=== PATIENT | female | born 1975 | race Caucasian/White ===

== ENCOUNTER 2018-05-15 18:27 | Emergency (ER) | payer BC ==
[~2018-05-15] VITALS: Ht 162.6 cm; Wt 74.9 kg
[~2018-05-15 18:27] MED LIST: ASPI325T4 PO; ATEN-175 PO; MULTTAB58 PO
[2018-05-15 18:31] VITALS: TEMP 36.7; Ht 162.6 cm; Wt 74.9 kg
--- NOTE | 2018-05-15 18:49 | EMERGENCY ROOM VISIT NOTE ---
History Report prepared by Tonie: Chalo Lopes Under the Supervision of: Dr. Yanique Mercado D.O. 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 The patient states she was at the fair today when she developed pins and needles in her whole chest that spreads down her arms and up into her neck. She reports she was also sweating which is odd because she does not sweat normally. The patient notes she had an episode of chest tightness Thursday that started an hour after she accidently took 200mg of her Atenolol. She states this resolved and was likely medication related. The patient reports she was baseline and Thursday. She notes she has a toddler at home and is worried about her constantly. The patient states she takes Lisinopril, Lexapro, and a baby aspirin daily. She reports she took an extra baby aspirin on the way here. The patient notes she has been eating fried food at the [facility] all week, and she is normally on a low carbohydrate diet. She attributes her recent diarrhea to her diet, and she denies being exposed to sick people. The patient denies cough, cold symptoms, fevers, chills, chest pain, chest pressure, back pain, dizziness , lightheadedness, and shortness of breath. The patient states 12 years ago, she had an episode of peripartum cardiomyopathy , LVAD, and a TIA. The patient states she was 38 weeks and started experiencing shortness of breath and vomiting. 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 The patient notes she was transferred to [facility] and in the hospital for 91 days. She states the was a still-born. The patient reports she had an LVAD for 79 days and was taken off it when her heart returned to normal size. She notes she did not require a heart transplant. The patient states she had a TIA when she being take off the LVAD it required her blood thinner to be stopped as well. She reports, because of her history, her heart now skips several beats, she has mild intermittent incontinence, right sided facial droop at times, and intermittent right leg weakness. The patient notes her last echo from [facility] two years ago, and she gets an echocardiogram every two years. She states she has not had an echocardiogram since she transferred to Dr. Samayoa. 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 A total of 10 systems reviewed and were otherwise negative. Past Medical & Surgical Medical Problems: (1) peripartum cardiomyopathy (2) TIA Family History Heart disease Social History Smoking Status: Never Smoker Alcohol Use: occasionally Marital Status: Housing Status: lives with family Current/Historical Medications Scheduled Aspirin (Aspirin Ec), 81 MG PO DAILY Atenolol (Tenormin), 100 MG PO DAILY Cholecalciferol (Vitamin D 1000 Unit), 1,000 INTER.UNIT PO DAILY Escitalopram Oxalate (Lexapro), 20 MG PO DAILY Lisinopril (Zestril), 5 MG PO DAILY Allergies Coded Allergies: Povidone Iodine (Verified Allergy, Unknown, ITCHING, RASH, 12/31/15) Pseudoephedrine (Verified Allergy, Unknown, 04/04/12) Physical Exam Vital Signs Date Time Temp Pulse Resp B/P (MAP) Pulse Ox O2 Delivery O2 Flow Rate FiO2 05/15/18 21:13 51 16 100/52 98 05/15/18 19:49 78 05/15/18 19:32 98 Room Air 05/15/18 19:29 98 Room Air 05/15/18 18:31 36.7 82 18 132/87 97 Room Air Physical Exam GENERAL: alert, well appearing, well nourished, no distress, non-toxic. Anxious. EYE EXAM: normal conjunctiva, PERRL and EOM's grossly intact OROPHARYNX: no exudate, no erythema, lips, buccal mucosa, and tongue normal and mucous membranes are moist NECK: supple, no nuchal rigidity, no adenopathy, non-tender CHEST: Well healed midline sternotomy scar. No reproducible tenderness to palpation of the chest wall. LUNGS: Clear to auscultation. Normal chest wall mechanics HEART: no murmurs, S1 normal and S2 normal ABDOMEN: abdomen soft, non-tender, normo-active bowel sounds, no masses, no rebound or guarding. BACK: Back is symmetrical on inspection and there is no deformity, no midline tenderness, no CVA tenderness. SKIN: no rashes and no bruising UPPER EXTREMITIES: upper extremities are grossly normal. LOWER EXTREMITIES: No pitting edema. NEURO EXAM: Normal sensorium, cranial nerves II-XII grossly intact, normal speech, no gross weakness of arms, no gross weakness of legs. Medical Decision & Procedures ER Provider Diagnostic Interpretation: Radiology results have been interpreted by the radiologist and reviewed by me. CHEST ONE VIEW PORTABLE CLINICAL HISTORY: Atypical chest pain COMPARISON STUDY: 09/23/2012 FINDINGS: The cardiac and mediastinal contours are normal. There is no evidence of focal pulmonary consolidation. There is no evidence of failure. No pleural effusions are visualized.[ There are postsurgical changes of a midline sternotomy. IMPRESSION: No active disease in the chest. Electronically signed by: Charlie Raymond M.D. 05/15/2018 7:24 PM Dictated Date/Time: 05/15/2018 7:24 PM Laboratory Results 05/15/18 19:19 Red Blood Count 5.16, Mean Corpuscular Volume 85.1, Mean Corpuscular Hemoglobin 29.5, Mean Corpuscular Hemoglobin Concent 34.6, Mean Platelet Volume 11.2, Neutrophils (%) (Auto) 65.0, Lymphocytes (%) (Auto) 25.9, Monocytes (%) (Auto) 7.6, Eosinophils (%) (Auto) 0.9, Basophils (%) (Auto) 0.3, Neutrophils # (Auto) 7.24, Lymphocytes # (Auto) 2.89, Monocytes # (Auto) 0.85, Eosinophils # (Auto) 0.10, Basophils # (Auto) 0.03 05/15/18 19:19 Test 05/15/18 19:19 White Blood Count 11.14 K/uL (4.8-10.8) Red Blood Count 5.16 M/uL (4.2-5.4) Hemoglobin 15.2 g/dL (12.0-16.0) Hematocrit 43.9 % (37-47) Mean Corpuscular Volume 85.1 fL (80-100) Mean Corpuscular Hemoglobin 29.5 pg (25-34) Mean Corpuscular Hemoglobin Concent 34.6 g/dl (32-36) Platelet Count 223 K/uL (130-400) Mean Platelet Volume 11.2 fL (7.4-10.4) Neutrophils (%) (Auto) 65.0 % Lymphocytes (%) (Auto) 25.9 % Monocytes (%) (Auto) 7.6 % Eosinophils (%) (Auto) 0.9 % Basophils (%) (Auto) 0.3 % Neutrophils # (Auto) 7.24 K/uL (1.4-6.5) Lymphocytes # (Auto) 2.89 K/uL (1.2-3.4) Monocytes # (Auto) 0.85 K/uL (0.11-0.59) Eosinophils # (Auto) 0.10 K/uL (0-0.5) Basophils # (Auto) 0.03 K/uL (0-0.2) RDW Standard Deviation 41.6 fL (36.4-46.3) RDW Coefficient of Variation 13.4 % (11.5-14.5) Immature Granulocyte % (Auto) 0.3 % Immature Granulocyte # (Auto) 0.03 K/uL (0.00-0.02) Prothrombin Time 9.8 SECONDS (9.0-12.0) Prothromb Time International Ratio 0.9 (0.9-1.1) Anion Gap 8.0 mmol/L (3-11) Est Creatinine Clear Calc Drug Dose 75.7 ml/min Estimated GFR () 84.5 Estimated GFR (Non- 72.9 BUN/Creatinine Ratio 15.0 (10-20) Calcium Level 8.9 mg/dl (8.5-10.1) Magnesium Level 1.8 mg/dl (1.8-2.4) Total Bilirubin 0.5 mg/dl (0.2-1) Aspartate Amino Transf (AST/SGOT) 13 U/L (15-37) Alanine Aminotransferase (ALT/SGPT) 21 U/L (12-78) Alkaline Phosphatase 91 U/L (45-117) Troponin I < 0.015 ng/ml (0-0.045) Pro-B-Type Natriuretic Peptide 779 pg/ml (0-450) Total Protein 7.8 gm/dl (6.4-8.2) Albumin 3.9 gm/dl (3.4-5.0) Globulin 3.9 gm/dl (2.5-4.0) Albumin/Globulin Ratio 1.0 (0.9-2) Thyroid Stimulating Hormone (TSH) 1.390 uIu/ml (0.300-4.500) Laboratory results per my review. Medications Administered Medications (Trade) Dose Ordered Sig/Inez Route Start Time Stop Time Status Last Admin Dose Admin Potassium Chloride (Klor-Con M10) 40 meq NOW STAT PO 05/15/18 20:42 05/15/18 20:45 DC 05/15/18 20:58 40 MEQ Magnesium Oxide (Mag-Ox Tab) 400 mg NOW STAT PO 05/15/18 20:42 05/15/18 20:45 DC 05/15/18 20:58 400 MG ECG Per My Interpretation Indication: chest pain Rate (beats per minute): 78 Rhythm: sinus rhythm Findings: PVC (frequent), no acute ischemic change, left axis deviation, other (Normal intervals.) Comparison ECG Date: 09/27/12 Change: no significant change Change: No acute change in morphology. ED Course 1835: The patient was evaluated in room B08. A complete history and physical exam was performed. 2034: I reevaluated the patient. She is feeling better now. She is now experiencing her PVCs. Patient denies any recent caffeine consumption, sleep deprivation, or change in activity. Patient states she does intermittently experience significant stress as she is the mother of a toddler. Patient also states she feels anxious at times which she thinks is likely secondary to her prior health experiences. 2038: I discussed the patient's case with Dr. Samayoa, Cardiology. He recommends giving the patient more magnesium and potassium. She should call the office on Thursday. 2041: Ordered Mag-Ox 400mg PO, Potassium Chloride 40meq PO 2055: Upon reevaluation, the patient is feeling better. I discussed the findings and the treatment plan with the patient. She verbalizes agreement and understanding. The patient was discharged home. Medical Decision Differential diagnoses includes but is not limited to acute coronary syndrome, myocardial infarction, pericarditis, pulmonary embolus, aortic dissection, pneumonia, pneumothorax, musculoskeletal, shingles, esophageal. Pt well appearing here despite complaints. Likely component of underlying anxiety which is understandable given pt's significant history and prior cardiac events. Pt's labs and imaging here reassuring. Case was discussed with Dr. Samayoa as a precaution given her significant history. Patient's pins and needles in the chest symptoms did improve here, however patient also had frequent PVCs noted on telemetry which patient also states she can feel. Dr. Samayoa like patient given additional potassium and magnesium as a precaution, and she can call the office Thursday for close outpatient follow-up next week. Discussed with patient avoidance of caffeine, adequate sleep and hydration, continued use of her routine medications, symptoms to watch and return for, she verbalized understanding was agreeable with plan. Patient hemodynamically stable here throughout, aware of all results, and in agreement with plan. Do not suspect ACS, pathologic dysrhythmia, acute CHF, acute valve rupture, tamponade, effusion, occult infectious etiology. Likely mildly abnormal proBNP is inconsequential, although I did discuss this with Dr. Samayoa as well and that is part of the reason he plans on doing an echo in the office next week. Medication Reconcilliation Current Medication List: was personally reviewed by me Blood Pressure Screening Patient's blood pressure: Elevated blood pressure Blood pressure disposition: Elevated BP felt to be situational Consults Time Called: 2033 Consulting Physician: Dr. Samayoa, Cardiology Returned Call: 2038 I discussed the patient's case with Dr. Samayoa, Cardiology. He recommends giving the patient more magnesium and potassium. She should call the office on Thursday. Impression Primary Impression: PVC (premature ventricular contraction) Additional Impression: Chest discomfort Scribe Attestation The scribe's documentation has been prepared under my direction and personally reviewed by me in its entirety. I confirm that the note above accurately reflects all work, treatment, procedures, and medical decision making performed by me. Departure Information Dispostion Home / Self-Care Referrals Ellen Washburn D.O. (PCP) Forms IMPORTANT VISIT INFORMATION Patient Instructions My [facility] Additional Instructions Please call Dr. Samayoa's office Thursday morning for an appointment. Please continue your regular medications. Please try to get adequate sleep, stay well hydrated, and avoid caffeine consumption. If you have any recurrent abnormal sensations in the chest, feel more palpitations, develop dizziness, trouble breathing, vomiting, fevers, or you have any other new or concerning symptoms, please return to the emergency room. Problem Qualifiers
--- NOTE | 2018-05-15 19:25 | DIAGNOSTIC IMAGING REPORT ---
CHEST ONE VIEW PORTABLE CLINICAL HISTORY: Atypical chest pain COMPARISON STUDY: 09/23/2012 FINDINGS: The cardiac and mediastinal contours are normal. There is no evidence of focal pulmonary consolidation. There is no evidence of failure. No pleural effusions are visualized.[ There are postsurgical changes of a midline sternotomy. IMPRESSION: No active disease in the chest. Electronically signed by: Charlie Raymond M.D. 05/15/2018 7:24 PM Dictated Date/Time: 05/15/2018 7:24 PM
[2018-05-15 19:29] VITALS: O2SAT 98
[2018-05-15 19:36] LABS: BASO % 0.3 %; BASO ABS # 0.03 K/uL (0-0.2); EOS % 0.9 %; HEMATOCRIT 43.9 % (37-47); HEMOGLOBIN 15.2 g/dL (12.0-16.0); IG# 0.03 K/uL (0.00-0.02); LYMPH % 25.9 %; LYMPH ABS # 2.89 K/uL (1.2-3.4); MEAN CELL VOLUME 85.1 fL (80-100); MEAN CORPUSCULAR HEMOGLOBIN 29.5 pg (25-34); MEAN CORPUSCULAR HGB CONC 34.6 g/dl (32-36); MEAN PLATELET VOLUME 11.2 fL (7.4-10.4); MONO % 7.6 %; MONO ABS # 0.85 K/uL (0.11-0.59); NEUT ABS # 7.24 K/uL (1.4-6.5); PLATELET COUNT 223 K/uL (130-400); RED CELL DISTRIBUTION WIDTH CV 13.4 % (11.5-14.5); RED CELL DISTRIBUTION WIDTH SD 41.6 fL (36.4-46.3); WHITE BLOOD COUNT 11.14 K/uL (4.8-10.8)
[2018-05-15 19:45] LABS: INR 0.9 (0.9-1.1)
[2018-05-15] MEDS ORDERED: ASPI81TA28 PO (20:07)
[2018-05-15] MEDS ORDERED: CHOL100027 PO (20:07)
[2018-05-15 20:19] LABS: ALBUMIN 3.9 gm/dl (3.4-5.0); ALKALINE PHOSPHATASE 91 U/L (45-117); ALT/SGPT 21 U/L (12-78); AST/SGOT 13 U/L (15-37); BLOOD UREA NITROGEN 14 mg/dl (7-18); CALCIUM 8.9 mg/dl (8.5-10.1); CARBON DIOXIDE 23 mmol/L (21-32); CREATININE 0.96 mg/dl (0.60-1.20); GLUCOSE 92 mg/dl (70-99); SODIUM 139 mmol/L (136-145); TOTAL PROTEIN 7.8 gm/dl (6.4-8.2)
[2018-05-15] MEDS ORDERED: ESCI1TAB10 PO (20:20)
[2018-05-15] MEDS ORDERED: LISI-729 PO (20:20)
[2018-05-15] MEDS ORDERED: MAGNESIUM OXIDE 400 MG TAB PO STA (20:42)
[2018-05-15] MEDS ORDERED: POTASSIUM CHLORIDE 10 MEQ TABCR PO STA (20:42)
[2018-05-15 21:13] VITALS: BP 100/52; PULSE 51; O2SAT 98
== END 2018-05-15 21:15 | disposition home or self-care (01) ==
LOC: C.EDB 18:28
DX: I49.3 Ventricular premature depolarization (principal); R07.89 Other chest pain; R19.7 Diarrhea, unspecified; Z79.82 Long term (current) use of aspirin; Z79.899 Other long term (current) drug therapy; Z88.8 Allergy status to other drugs, medicaments and biological substances; Z86.73 Personal history of transient ischemic attack (TIA), and cerebral infarction without residual deficits

== ENCOUNTER 2018-12-02 17:47 | Observation (INO) ==
--- NOTE | 2018-12-02 19:15 | XRay Report ---
SINGLE VIEW CHEST CLINICAL HISTORY: Strokelike symptoms. FINDINGS: An AP, portable, upright chest radiograph is compared to study dated 05/15/2018 and correlat ed with chest CT dated 12/28/2013. The patient is status post midline sternotomy. The cardiomediastinal silhouette is unremarkable. The lungs and pleural spaces are clear. No pneumothorax is seen. The bon y thorax is grossly intact. IMPRESSION: No active disease in the chest. Electronically signed by: Van Womack M.D. 12/02/2018 7:14 PM
--- NOTE | 2018-12-02 20:23 | CT Scan Report ---
UNENHANCED CT OF THE BRAIN; CT ANGIOGRAM OF THE BRAIN; CT ANGIOGRAM OF THE NECK CLINICAL HISTORY: Strokelike symptoms. COMPARISON STUDY: CT of the brain dated 09/23/2012. MRI of the brain dated 01/03/2016. MR angiogram of the brain dated 09/24/2012. TECHNIQUE: Unenhanced axial CT scan of the brain is performed. Subsequently, following the IV adminis tration of 115 of [address] 320, CT angiogram of the head and neck was performed from the aortic arch t o the vertex. Images are reviewed in the axial, sagittal, and coronal planes. 3-D MIPS images are cre ated and assessed. IV contrast was administered without complication. All measurements were calculate d based on NASCET criteria. A dose lowering technique was utilized adhering to the principles of ALA RA. CT DOSE: 1002.17 mGy.cm FINDINGS: Brain parenchyma: Small chronic infarcts involving the right parietal lobe in the right basal ganglia are unchanged from prior studies. There is no hemorrhage, mass effect, or evidence of acute territor ial ischemia by CT criteria. There is no evidence of enhancing mass lesion on the angiogram phase joanna ges. The ventricles, sulci, and cisterns are normal in configuration. [place]-white matter differentiati on is preserved. No extra-axial fluid collection is seen. Thoracic aorta: Visualized portions of the thoracic aorta are normal in caliber. The aortic arch demo nstrates standard 3-vessel anatomy. Right carotid arterial system: The right common carotid artery is widely patent, as are the right int ernal and external carotid arteries. Left carotid arterial system: The left common carotid artery is widely patent, as are the left internal affairs investigator al and external carotid arteries. Vertebral arteries: The vertebral arteries are patent bilaterally and codominant. There is a fenestra tion versus focal dissection identified within the mid left vertebral artery at the C4-C5 level, best seen on axial image #131. This extends approximately 1 cm in length. Subclavian arteries: Patent bilaterally. Intracranial vasculature: There is origin of the left posterior cerebral artery. A posterior co mmunicating artery is seen on the right. The internal carotid arteries are patent at the skull base, as are the anterior and middle cerebral arteries bilaterally. The vertebrobasilar system and posterio r cerebral arteries are widely patent. The left vertebral artery is dominant. There is no aneurysm, h igh-grade stenosis, or focal vessel cut off seen throughout the intracranial circulation. Jugular veins: Widely patent bilaterally. Dural sinuses: Patent. Lung apices: Midline sternotomy wires are noted. Partially visualized upper lobe lung parenchyma appe ars clear. Soft tissues: The visualized pharyngeal soft tissues are normal in appearance noting angiographic pha se technique. The oropharyngeal airway appears widely patent. The salivary and thyroid glands are nor mal in appearance. No cervical lymphadenopathy is seen. Skeletal structures: The calvarium appears intact. The cervical spine is within normal limits. Sinuses and mastoids: Moderate mucosal thickening is seen within the anterior ethmoid sinuses. Mild m ucosal thickening is seen within the maxillary antra. The remaining paranasal sinuses are clear. The mastoid air cells are well pneumatized. IMPRESSION: 1. Chronic infarcts as above with no hemorrhage, mass effect, or evidence of acute territorial ischem ia by CT criteria. 2. Unremarkable CT angiogram of the brain. 3. There is a fenestration versus focal dissection identified within the mid left vertebral artery at the C4-C5 level. If there are any prior outside imaging studies of the neck this should be useful fo r comparison purposes. 4. Otherwise unremarkable CT angiogram of the neck. Electronically signed by: Van Womack M.D. 12/02/2018 8:21 PM
--- NOTE | 2018-12-02 22:01 | History & Physical Report ---
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 Aspirin failure chronic systolic heart failure (EF 45-50%), patient euvolemic hx cardiogenic shock sp LVAD (07/2005) status post removal (11/2005) hypertension/PVCs on Coreg, BP on the lower side Recent sinusitis infection, improved on ongoing Augmentin Rx Diarrhea rule out C. difficile OBS Medical telemetry Neurochecks Add Plavix to aspirin for now for possible aspirin failure until new event ruled out by MRI/MRA of the brain Neurology consult RE transient aphasia (Patient known to Dr. Walton). Appropriate to decrease maintenance Coreg for now to obviate cerebral hypoperfusion until new stroke definitively ruled out. Stool C. difficile DVT prophylaxis. Lovenox subcu Full code History of Present Illness Chief Complaint: Could not get words out Primary Care Provider: Ellen Washburn, History obtained from patient, family, and records. Medical history significant for chronic systolic heart failure (EF 45-50%), cardiogenic shock secondary to peripartum cardiomyopathy status post LVAD (07/2005) status post removal (11/2005), hx of cardioembolic stroke status post Coumadin (10/2005), hypertension/PVCs on Coreg, anxiety/PTSD/mood disorder. Recent confinement September 2012 for transient aphasia, right sided facial numbness, RUE/RLE tingling sensation symptoms attributed to TIA symptoms. As per patient, she was on Plavix for a short time outpatient for stroke prophylaxis. Plavix later switched back to aspirin after bruising noted as per patient. Patient seen at PCPs office yesterday for sinusitis symptoms. Augmentin Rx initiated. Loose stools noted without abdominal pain. A few hours ago, patient was folding clothes with her when she had trouble getting words out along with left-sided achy headache symptoms different from usual migraine attack. No aura as per patient. Episode lasted about 10 seconds. Patient compliant with home aspirin Rx. Some stress at work. 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 Allergies Allergy/AdvReac Type Severity Reaction Status Date / Time cinnamon Allergy Severe Blister Verified 12/02/18 20:29 povidone-iodine Allergy Unknown ITCHING, Verified 12/02/18 20:28 RASH pseudoephedrine Allergy Unknown Unknown Verified 12/02/18 20:28 Home Medications Home Medications Medication Instructions Recorded Confirmed Type albuterol sulfate [ProAir HFA] 2 puff INHALATION Q4 PRN 12/02/18 12/02/18 History amoxicillin-pot clavulanate 1 tab PO BID 12/02/18 12/02/18 History [Augmentin] ascorbic acid (vitamin C) [Vitamin 500 mg PO DAILY 12/02/18 12/02/18 History C] aspirin [Aspir-Low] 81 mg PO DAILY 12/02/18 12/02/18 History benzonatate [Tessalon Perles] 100 mg PO TID PRN 12/02/18 12/02/18 History carvedilol [Coreg] 12.5 mg PO BID 12/02/18 12/02/18 History cholecalciferol (vitamin D3) 2,000 unit PO DAILY 12/02/18 12/02/18 History [Vitamin D3] escitalopram oxalate 20 mg PO DAILY 12/02/18 12/02/18 History fluticasone [Flonase Allergy 2 spray INTRANASAL DAILY PRN 12/02/18 12/02/18 Hi story Relief] lisinopril 2.5 mg PO DAILY 12/02/18 12/02/18 History lorazepam 0.5 mg PO DAILY PRN 12/02/18 12/02/18 History magnesium oxide 400 mg PO Q OTHER DAY 12/02/18 12/02/18 History multivitamin 1 tab PO DAILY 12/02/18 12/02/18 History Past Med/Surg History Medical History Stroke TIA (transient ischemic attack) Surgical History History of bladder surgery History of left ventricular assist device (LVAD) Social History Preferred Language: Turkish Beliefs That Will Affect Care: None Current Living Situation: Spouse current occupational status: employed 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 [employer] Other Information That Helps Us Care for You: No Feels Safe at Home: Yes Safety Concerns: Feels Safe At This Time Smoking Status: Never smoker Hx Alcohol Use: Yes Hx Substance Use: No Review of Systems As per HPI, all 10 systems reviewed, all other ROS negative Physical Exam Vital Signs (Past 24 Hours): Last Vital Signs Temp 36.7 C 12/02/18 17:56 Pulse 86 12/02/18 20:39 Resp 18 12/02/18 20:39 BP 118/71 12/02/18 20:39 Pulse Ox 98 12/02/18 20:39 Physical Exam: GENERAL: Comfortable, slightly anxious, pleasant, no respiratory distress SKIN: Normal color, warm HEENT: [place] palpebral conjunctivae, no ptosis, dry buccal mucosa NECK : Supple, no tenderness CHEST : CTA, no tenderness HEART : RRR with occasional skipped beats, no obvious murmurs ABDOMEN: Some distention, nontender EXTREMITIES : No LE swelling/tenderness, no other conspicuous deformities noted NEUROLOGIC : Coherent, no facial asymmetry, no other gross focality Results & Data Laboratory Results Laboratory Results WBC 10.96 K/uL (4.8-10.8) H 12/02/18 19:00 RBC 5.11 M/uL (4.2-5.4) 12/02/18 19:00 Hgb 15.0 g/dL (12.0-16.0) 12/02/18 19:00 POC Hgb 15.3 g/dl (12.0-16.0) 12/02/18 19:07 Hct 43.8 % (37-47) 12/02/18 19:00 POC Hct 45 % (37-47) 12/02/18 19:07 MCV 85.7 fL (80-100) 12/02/18 19:00 MCH 29.4 pg (25-34) 12/02/18 19:00 MCHC 34.2 g/dL (32-36) 12/02/18 19:00 RDW Std Deviation 41.5 fL (36.4-46.3) 12/02/18 19:00 RDW Coeff of Marcell 13.2 % (11.5-14.5) 12/02/18 19:00 Plt Count 255 K/uL (130-400) 12/02/18 19:00 MPV 10.6 fL (7.4-10.4) H 12/02/18 19:00 Immature Gran % (Auto) 0.3 % 12/02/18 19:00 Neut % (Auto) 57.2 % 12/02/18 19:00 Lymph % (Auto) 34.0 % 12/02/18 19:00 [place] % (Auto) 6.3 % 12/02/18 19:00 Eos % (Auto) 1.9 % 12/02/18 19:00 Baso % (Auto) 0.3 % 12/02/18 19:00 Immature Gran # (Auto) 0.03 K/uL (0.00-0.02) H 12/02/18 19:00 Neut # (Auto) 6.27 K/uL (1.4-6.5) 12/02/18 19:00 Lymph # (Auto) 3.73 K/uL (1.2-3.4) H 12/02/18 19:00 [place] # (Auto) 0.69 K/uL (0.11-0.59) H 12/02/18 19:00 Eos # (Auto) 0.21 K/uL (0-0.5) 12/02/18 19:00 Baso # (Auto) 0.03 K/uL (0-0.2) 12/02/18 19:00 PT 9.9 Seconds (9.0-12.0) 12/02/18 19:00 INR 1.0 (0.9-1.1) 12/02/18 19:00 APTT 26.3 Seconds (21.0-31.0) 12/02/18 19:00 PTT Ratio 1.0 12/02/18 19:00 POC Sodium 141 mEq/L (135-144) 12/02/18 19:07 Sodium 140 mmol/L (136-145) 12/02/18 19:00 POC Potassium 3.9 mEq/L (3.3-5.0) 12/02/18 19:07 Potassium 3.8 mmol/L (3.5-5.1) 12/02/18 19:00 POC Chloride 106 mEq/L (101-112) 12/02/18 19:07 Chloride 108 mmol/L (98-107) H 12/02/18 19:00 Carbon Dioxide 26 mmol/L (21-32) 12/02/18 19:00 POC Total CO2 24 mEq/l (24-31) 12/02/18 19:07 Anion Gap 6.0 (3-11) 12/02/18 19:00 POC Anion Gap 17.0 mmol/L (16-25) 12/02/18 19:07 POC BUN 23 mg/dl (7-18) H 12/02/18 19:07 BUN 24 mg/dl (7-18) H 12/02/18 19:00 Creatinine 0.93 mg/dl (0.6-1.2) 12/02/18 19:00 POC Creatinine 0.9 mg/dl (0.6-1.3) 12/02/18 19:07 Est Cr Clr Drug Dosing 79.3 ml/min 12/02/18 19:00 Est GFR ( Amer) 87.2 12/02/18 19:00 Est GFR (Non-Af Amer) 75.3 12/02/18 19:00 BUN/Creatinine Ratio 25.7 (10-20) H 12/02/18 19:00 Glucose 84 mg/dl (70-99) 12/02/18 19:00 POC Glucose 83 (70-99) 12/02/18 18:58 POC Glucose (other) 86 mg/dl (70-99) 12/02/18 19:07 Calcium 9.6 mg/dl (8.5-10.1) 12/02/18 19:00 POC Ioniz Calcium Andre 1.23 mmol/l (1.12-1.32) 12/02/18 19:07 Phosphorus 3.0 mg/dl (2.5-4.9) 12/02/18 19:00 Magnesium 2.0 mg/dl (1.8-2.4) 12/02/18 19:00 Total Bilirubin 0.3 mg/dl (0.2-1) 12/02/18 19:00 AST 15 U/L (15-37) 12/02/18 19:00 ALT 23 U/L (12-78) 12/02/18 19:00 Alkaline Phosphatase 106 U/L (45-117) 12/02/18 19:00 Troponin I < 0.015 ng/ml (0-0.045) 12/02/18 19:00 Total Protein 8.3 gm/dl (6.4-8.2) H 12/02/18 19:00 Albumin 4.1 gm/dl (3.4-5.0) 12/02/18 19:00 Globulin 4.2 gm/dl (2.5-4.0) H 12/02/18 19:00 Albumin/Globulin Ratio 1.0 (0.9-2) 12/02/18 19:00 TSH 1.820 uIu/ml (0.300-4.500) 12/02/18 19:00 HCG, Qual Negative (Negative) 12/02/18 19:00 Urine Color Yellow 12/02/18 18:15 Urine Appearance Clear (Clear) 12/02/18 18:15 Urine pH 5.0 (4.5-7.5) 12/02/18 18:15 Ur Specific [place] 1.010 (1.000-1.030) 12/02/18 18:15 Urine Protein Negative (Negative) 12/02/18 18:15 Urine Glucose (UA) Negative (Negative) 12/02/18 18:15 Urine Ketones Negative (Negative) 12/02/18 18:15 Urine Blood Trace (Negative) H 12/02/18 18:15 Urine Nitrite Negative (Negative) 12/02/18 18:15 Urine Bilirubin Negative (Negative) 12/02/18 18:15 Urine Urobilinogen Negative (Negative) 12/02/18 18:15 Ur Leukocyte Esterase 1+ (Negative) H 12/02/18 18:15 Urine WBC (Auto) 1-5 /hpf (0-5) 12/02/18 18:15 Urine RBC (Auto) 0-4 /hpf (0-4) 12/02/18 18:15 U Hyaline Cast (Auto) 1-5 /lpf (0-5) 12/02/18 18:15 U Epithel Cells (Auto) 5-10 /lpf (0-5) H 12/02/18 18:15 Urine Bacteria (Auto) Negative (Negative) 12/02/18 18:[address] head/CT neck angiogram 1. Chronic infarcts as above with no hemorrhage, mass effect, or evidence of acute territorial ischemia by CT criteria. 2. Unremarkable CT angiogram of the brain. 3. There is a fenestration versus focal dissection identified within the mid left vertebral artery at the C4-C5 level. If there are any prior outside imaging studies of the neck this should be useful for comparison purposes. Chest x-ray no active disease EKG as per my interpretation : Rate 80, NSR, LAD, LAFB, diffuse T wave flattening anterolateral leads
--- NOTE | 2018-12-02 23:18 | Emergency Department Note ---
Entered by Jonathon Butler acting as a scribe for Rich Piña MD History of Present Illness General Chief complaint: Stroke/CVA Symptoms Stated complaint: UNABLE TO MOVE FOR 10SECS, HEADACHE, TONGUE/RT ARM Time Seen by Provider: 12/02/18 18:25 Source: patient and family Limitations: no limitations History of Present Illness Provider complaint: Unresponsive episode Onset (ago): minute(s) Location: head Pain Consistency: + now resolved Quality: + other (unable to speak, unresponsive) Associated symptoms: + fever/chills, + shortness of breath and + weakness The patient is a 43 year old female who presents to the Emergency Room with complaints of a brief episode of unresponsiveness that occurred shortly prior to arrival. The patient and at bedside state that they were folding bed sheets together this afternoon when she suddenly became unresponsive. The patient confirms that she was awake and could hear her speaking to her, but she was unable to respond to him. She notes that she could not move her mouth or her tongue and she was completely unable to speak. When the turned around to look at the patient she seemed to be "in a daze" and was not responding. This episode resolved in a matter of seconds, and she was able to speak again. She never lost control of her muscle tone and did not fall at any time. The patient does add that she has been dealing with common cold symptoms over the past 2 days including; fevers, fatigue, cough, and shortness of breath. She is taking Amoxicillin for these symptoms. The patient does have a significan t history of TIA and stroke. The patient's notes that she was hospitalized and on a LVAD when the major stroke occurred. A clot formed in the LVAD and went to the patient's brain when the Heparin was stopped so she could have a heart catheterization. With this stroke the patient initially would not verbally respond to the nurses or her . Her condition then worsened significantly. The patient notes that her episode today is completely resolved, aside from a "tingling" to her mouth and face. She does note some recent increased stress at work recently. The patient has a history of anxiety and is prescribed Lorazepam. Home Medications Home Medications Medication Instructions Recorded Confirmed Type albuterol sulfate [ProAir HFA] 2 puff INHALATION Q4 PRN 12/02/18 12/02/18 History amoxicillin-pot clavulanate 1 tab PO BID 12/02/18 12/02/18 History [Augmentin] ascorbic acid (vitamin C) [Vitamin 500 mg PO DAILY 12/02/18 12/02/18 History C] aspirin [Aspir-Low] 81 mg PO DAILY 12/02/18 12/02/18 History benzonatate [Tessalon Perles] 100 mg PO TID PRN 12/02/18 12/02/18 History carvedilol [Coreg] 12.5 mg PO BID 12/02/18 12/02/18 History cholecalciferol (vitamin D3) 2,000 unit PO DAILY 12/02/18 12/02/18 History [Vitamin D3] escitalopram oxalate 20 mg PO DAILY 12/02/18 12/02/18 History fluticasone [Flonase Allergy 2 spray INTRANASAL DAILY PRN 12/02/18 12/02/18 History Relief] lisinopril 2.5 mg PO DAILY 12/02/18 12/02/18 History lorazepam 0.5 mg PO DAILY PRN 12/02/18 12/02/18 History magnesium oxide 400 mg PO Q OTHER DAY 12/02/18 12/02/18 History multivitamin 1 tab PO DAILY 12/02/18 12/02/18 History Allergies Allergy/AdvReac Type Severity Reaction Status Date / Time cinnamon Allergy Severe Blister Verified 12/02/18 20:29 povidone-iodine Allergy Unknown ITCHING, Verified 12/02/18 20:28 RASH pseudoephedrine Allergy Unknown Unknown Verified 12/02/18 20:28 Past Med/Surg History Medical History Stroke TIA (transient ischemic attack) Social History Preferred Language: Samoan Communication Ability: Effective Physical Therapist Aide Required: No Beliefs That Will Affect Care: None Current Living Situation: Spouse current occupational status: employed Other Information That Helps Us Care for You: No Feels Safe at Home: Yes Safety Concerns: Feels Safe At This Time Smoking Status: Never smoker Hx Alcohol Use: Yes Hx Substance Use: No Review of Systems See HPI for pertinent positives & negatives. and A total of 10 systems reviewed and were otherwise negative Physical Exam Vital Signs Vital Signs - 24 hr 12/02/18 17:56 12/02/18 19:56 12/02/18 20:39 Temperature 36.7 C Temperature Source Oral Sepsis Recent Fever Within 48 Hours No Sepsis Action Taken by Nursing No Action Required Pulse Rate 88 Pulse Rate [Apical] 90 86 Pulse Rhythm Regular Pulse Strength Normal Respiratory Rate 18 18 18 Respiratory Effort / Characteristics Non-Labored Respiratory Depth Normal Respiratory Pattern Regular Blood Pressure 133/86 Blood Pressure [Left Arm] 123/76 118/71 Blood Pressure Mean 101 Blood Pressure Mean [Left Arm] 91 86 Blood Pressure Position Sitting Pulse Oximetry 98 98 98 Oxygen Delivery Method Room Air Room Air Room Air 12/02/18 23:05 12/02/18 23:35 12/03/18 00:08 Temperature 36.8 C Temperature Source Oral Sepsis Recent Fever Within 48 Hours Sepsis Action Taken by Nursing Pulse Rate 78 Pulse Rate [Apical] 84 78 Pulse Rhythm Pulse Strength Respiratory Rate 18 20 Respiratory Effort / Characteristics Non-Labored Spontaneous Respiratory Depth Normal Respiratory Pattern Regular Blood Pressure Blood Pressure [Left Arm] 111/68 135/80 Blood Pressure Mean Blood Pressure Mean [Left Arm] 82 98 Blood Pressure Position Pulse Oximetry 95 94 Oxygen Delivery Method Room Air Room Air GENERAL: Awake, alert, anxious-appearing, in no distress HENT: Normocephalic, atraumatic. Oropharynx with dry mucous membranes and otherwise unremarkable. EYES: Normal conjunctiva. Sclera non-icteric. EOMI. No nystamgus. Left pupil 4mm and right pupil 3mm (baseline per patient) and both reactive. NECK: Supple. No nuchal rigidity. FROM. No JVD. RESPIRATORY: Clear to auscultation. CARDIAC: Regular rate, normal rhythm. Extremities warm and well perfused. Pulses equal. ABDOMEN: Soft, non-distended. No tenderness to palpation. No rebound or guarding. No masses. RECTAL: Deferred. MUSCULOSKELETAL: Chest examination reveals no tenderness. The back is symmetrical on inspection without obvious abnormality. There is no CVA tenderness to palpation. No joint edema. LOWER EXTREMITIES: Calves are equal size bilaterally and non-tender. No edema. No discoloration. NEURO: Cranial nerves 2-12 grossly intact. Normal sensorium. No sensory or motor deficits noted. Speech normal. No pronator drift. Cukuor-ey-kgti intact. Gdje-pa-rlaw intact. SKIN: No rash or jaundice noted. Course 182: Past medical records reviewed. The patient was evaluated in room A11A, and a complete history and physical examination were performed. 2044: I reviewed the patient's case [facility] He will evaluate the patient for further management. Administered Medications Amoxicillin/Clavulanate Potassium (Augmentin 875mg) 1 tab PO BIDM [facility] Stop: 12/13/18 00:29 Last Admin: 12/03/18 00:26 Dose: 1 tab Documented by: [id number] Carvedilol (Coreg) 3.125 mg PO BID ERNESTINA Stop: 01/02/19 00:29 Last Admin: 12/03/18 00:26 Dose: 3.125 mg Documented by: [id number] Lactated Ringer's (Lr) 1,000 mls @ 60 mls/hr IV .[id number] ONE Stop: 12/03/18 16:47 Last Admin: 12/03/18 01:45 Dose: 60 mls/hr Documented by: [id number] Discontinued Medications Clopidogrel Bisulfate (Plavix) 75 mg PO NOW ONE Stop: 12/02/18 20:57 Last Admin: 12/02/18 21:04 Dose: 75 mg Documented by: [id number] Sodium Chloride (Nss 1000ml) 2,000 mls @ 999 mls/hr IV .Q2H1M ONE Stop: 12/02/18 20:40 Last Infusion: 12/02/18 21:31 Dose: 0 mls/hr Documented by: [id number] Admin: 12/02/18 19:17 Dose: 999 mls/hr Documented by: [id number] Ioversol (Optiray 320 125ml) 115 ml IV ONCE PRN PRN Reason: Interaction Checking Stop: 12/06/18 19:50 Last Admin: 12/02/18 19:51 Dose: 115 ml Documented by: [id number] Medical Decision Making Differential Diagnosis Differential Diagnosis includes: Differential includes acute coronary syndrome, myocardial infarction, CVA, TIA, anemia, infection, pneumonia, UTI, pyelonephritis, poor nutrition, dehydration, electrolyte disturbance,hypoglycemia. Medical Records Attestation: I reviewed the patient's medical records. Home Medications Current Medication List: was personally reviewed by me Laboratory Data Attestation: I reviewed the patient's lab results. Result diagrams: 12/02/18 19:00 12/02/18 19:00 Lab Results 12/02/18 12/02/18 12/02/18 Range/Units 18:15 18:58 19:00 WBC 10.96 H (4.8-10.8) K/uL RBC 5.11 (4.2-5.4) M/uL Hgb 15.0 (12.0-16.0) g/dL POC Hgb (12.0-16.0) g/dl Hct 43.8 (37-47) % POC Hct (37-47) % MCV 85.7 (80-100) fL MCH 29.4 (25-34) pg MCHC 34.2 (32-36) g/dL RDW Std Deviation 41.5 (36.4-46.3) fL RDW Coeff of Marcell 13.2 (11.5-14.5) % Plt Count 255 (130-400) K/uL MPV 10.6 H (7.4-10.4) fL Immature Gran % (Auto) 0.3 % Neut % (Auto) 57.2 % Lymph % (Auto) 34.0 % Garrard % (Auto) 6.3 % Eos % (Auto) 1.9 % Baso % (Auto) 0.3 % Immature Gran # (Auto) 0.03 H (0.00-0.02) K/uL Neut # (Auto) 6.27 (1.4-6.5) K/uL Lymph # (Auto) 3.73 H (1.2-3.4) K/uL Garrard # (Auto) 0.69 H (0.11-0.59) K/uL Eos # (Auto) 0.21 (0-0.5) K/uL Baso # (Auto) 0.03 (0-0.2) K/uL PT (9.0-12.0) Seconds INR (0.9-1.1) APTT (21.0-31.0) Seconds PTT Ratio POC Sodium (135-144) mEq/L Sodium (136-145) mmol/L POC Potassium (3.3-5.0) mEq/L Potassium (3.5-5.1) mmol/L POC Chloride (101-112) mEq/L Chloride (98-107) mmol/L Carbon Dioxide (21-32) mmol/L POC Total CO2 (24-31) mEq/l Anion Gap (3-11) POC Anion Gap (16-25) mmol/L POC BUN (7-18) mg/dl BUN (7-18) mg/dl Creatinine (0.6-1.2) mg/dl POC Creatinine (0.6-1.3) mg/dl Est Cr Clr Drug Dosing ml/min Est GFR ( Amer) Est GFR (Non-Af Amer) BUN/Creatinine Ratio (10-20) Glucose (70-99) mg/dl POC Glucose 83 (70-99) POC Glucose (other) (70-99) mg/dl Calcium (8.5-10.1) mg/dl POC Ioniz Calcium Andre (1.12-1.32) mmol/l Phosphorus (2.5-4.9) mg/dl Magnesium (1.8-2.4) mg/dl Total Bilirubin (0.2-1) mg/dl AST (15-37) U/L ALT (12-78) U/L Alkaline Phosphatase (45-117) U/L Troponin I (0-0.045) ng/ml Total Protein (6.4-8.2) gm/dl Albumin (3.4-5.0) gm/dl Globulin (2.5-4.0) gm/dl Albumin/Globulin Ratio (0.9-2) TSH (0.300-4.500) uIu/ml HCG, Qual (Negative) Urine Color Yellow Urine Appearance Clear (Clear) Urine pH 5.0 (4.5-7.5) Ur Specific Eden 1.010 (1.000-1.030) Urine Protein Negative (Negative) Urine Glucose (UA) Negative (Negative) Urine Ketones Negative (Negative) Urine Blood Trace H (Negative) Urine Nitrite Negative (Negative) Urine Bilirubin Negative (Negative) Urine Urobilinogen Negative (Negative) Ur Leukocyte Esterase 1+ H (Negative) Urine WBC (Auto) 1-5 (0-5) /hpf Urine RBC (Auto) 0-4 (0-4) /hpf U Hyaline Cast (Auto) 1-5 (0-5) /lpf U Epithel Cells (Auto) 5-10 H (0-5) /lpf Urine Bacteria (Auto) Negative (Negative) 03/14/19 03/14/19 03/14/19 Range/Units 19:00 19:00 19:00 WBC (4.8-10.8) K/uL RBC (4.2-5.4) M/uL Hgb (12.0-16.0) g/dL POC Hgb (12.0-16.0) g/dl Hct (37-47) % POC Hct (37-47) % MCV (80-100) fL MCH (25-34) pg MCHC (32-36) g/dL RDW Std Deviation (36.4-46.3) fL RDW Coeff of Marcell (11.5-14.5) % Plt Count (130-400) K/uL MPV (7.4-10.4) fL Immature Gran % (Auto) % Neut % (Auto) % Lymph % (Auto) % Garrard % (Auto) % Eos % (Auto) % Baso % (Auto) % Immature Gran # (Auto) (0.00-0.02) K/uL Neut # (Auto) (1.4-6.5) K/uL Lymph # (Auto) (1.2-3.4) K/uL Garrard # (Auto) (0.11-0.59) K/uL Eos # (Auto) (0-0.5) K/uL Baso # (Auto) (0-0.2) K/uL PT 9.9 (9.0-12.0) Seconds INR 1.0 (0.9-1.1) APTT 26.3 (21.0-31.0) Seconds PTT Ratio 1.0 POC Sodium (135-144) mEq/L Sodium 140 (136-145) mmol/L POC Potassium (3.3-5.0) mEq/L Potassium 3.8 (3.5-5.1) mmol/L POC Chloride (101-112) mEq/L Chloride 108 H (98-107) mmol/L Carbon Dioxide 26 (21-32) mmol/L POC Total CO2 (24-31) mEq/l Anion Gap 6.0 (3-11) POC Anion Gap (16-25) mmol/L POC BUN (7-18) mg/dl BUN 24 H (7-18) mg/dl Creatinine 0.93 (0.6-1.2) mg/dl POC Creatinine (0.6-1.3) mg/dl Est Cr Clr Drug Dosing 79.3 ml/min Est GFR ( Amer) 87.2 Est GFR (Non-Af Amer) 75.3 BUN/Creatinine Ratio 25.7 H (10-20) Glucose 84 (70-99) mg/dl POC Glucose (70-99) POC Glucose (other) (70-99) mg/dl Calcium 9.6 (8.5-10.1) mg/dl POC Ioniz Calcium Andre (1.12-1.32) mmol/l Phosphorus 3.0 Cancelled (2.5-4.9) mg/dl Magnesium 2.0 (1.8-2.4) mg/dl Total Bilirubin 0.3 (0.2-1) mg/dl AST 15 (15-37) U/L ALT 23 (12-78) U/L Alkaline Phosphatase 106 (45-117) U/L Troponin I < 0.015 (0-0.045) ng/ml Total Protein 8.3 H (6.4-8.2) gm/dl Albumin 4.1 (3.4-5.0) gm/dl Globulin 4.2 H (2.5-4.0) gm/dl Albumin/Globulin Ratio 1.0 (0.9-2) TSH 1.820 Cancelled (0.300-4.500) uIu/ml HCG, Qual (Negative) Urine Color Urine Appearance (Clear) Urine pH (4.5-7.5) Ur Specific Eden (1.000-1.030) Urine Protein (Negative) Urine Glucose (UA) (Negative) Urine Ketones (Negative) Urine Blood (Negative) Urine Nitrite (Negative) Urine Bilirubin (Negative) Urine Urobilinogen (Negative) Ur Leukocyte Esterase (Negative) Urine WBC (Auto) (0-5) /hpf Urine RBC (Auto) (0-4) /hpf U Hyaline Cast (Auto) (0-5) /lpf U Epithel Cells (Auto) (0-5) /lpf Urine Bacteria (Auto) (Negative) 12/02/18 12/02/18 Range/Units 19:00 19:07 WBC (4.8-10.8) K/uL RBC (4.2-5.4) M/uL Hgb (12.0-16.0) g/dL POC Hgb 15.3 (12.0-16.0) g/dl Hct (37-47) % POC Hct 45 (37-47) % MCV (80-100) fL MCH (25-34) pg MCHC (32-36) g/dL RDW Std Deviation (36.4-46.3) fL RDW Coeff of Marcell (11.5-14.5) % Plt Count (130-400) K/uL MPV (7.4-10.4) fL Immature Gran % (Auto) % Neut % (Auto) % Lymph % (Auto) % Garrard % (Auto) % Eos % (Auto) % Baso % (Auto) % Immature Gran # (Auto) (0.00-0.02) K/uL Neut # (Auto) (1.4-6.5) K/uL Lymph # (Auto) (1.2-3.4) K/uL Garrard # (Auto) (0.11-0.59) K/uL Eos # (Auto) (0-0.5) K/uL Baso # (Auto) (0-0.2) K/uL PT (9.0-12.0) Seconds INR (0.9-1.1) APTT (21.0-31.0) Seconds PTT Ratio POC Sodium 141 (135-144) mEq/L Sodium (136-145) mmol/L POC Potassium 3.9 (3.3-5.0) mEq/L Potassium (3.5-5.1) mmol/L POC Chloride 106 (101-112) mEq/L Chloride (98-107) mmol/L Carbon Dioxide (21-32) mmol/L POC Total CO2 24 (24-31) mEq/l Anion Gap (3-11) POC Anion Gap 17.0 (16-25) mmol/L POC BUN 23 H (7-18) mg/dl BUN (7-18) mg/dl Creatinine (0.6-1.2) mg/dl POC Creatinine 0.9 (0.6-1.3) mg/dl Est Cr Clr Drug Dosing ml/min Est GFR ( Amer) Est GFR (Non-Af Amer) BUN/Creatinine Ratio (10-20) Glucose (70-99) mg/dl POC Glucose (70-99) POC Glucose (other) 86 (70-99) mg/dl Calcium (8.5-10.1) mg/dl POC Ioniz Calcium Andre 1.23 (1.12-1.32) mmol/l Phosphorus (2.5-4.9) mg/dl Magnesium (1.8-2.4) mg/dl Total Bilirubin (0.2-1) mg/dl AST (15-37) U/L ALT (12-78) U/L Alkaline Phosphatase (45-117) U/L Troponin I (0-0.045) ng/ml Total Protein (6.4-8.2) gm/dl Albumin (3.4-5.0) gm/dl Globulin (2.5-4.0) gm/dl Albumin/Globulin Ratio (0.9-2) TSH (0.300-4.500) uIu/ml HCG, Qual Negative (Negative) Urine Color Urine Appearance (Clear) Urine pH (4.5-7.5) Ur Specific Eden (1.000-1.030) Urine Protein (Negative) Urine Glucose (UA) (Negative) Urine Ketones (Negative) Urine Blood (Negative) Urine Nitrite (Negative) Urine Bilirubin (Negative) Urine Urobilinogen (Negative) Ur Leukocyte Esterase (Negative) Urine WBC (Auto) (0-5) /hpf Urine RBC (Auto) (0-4) /hpf U Hyaline Cast (Auto) (0-5) /lpf U Epithel Cells (Auto) (0-5) /lpf Urine Bacteria (Auto) (Negative) Imaging Data Attestation: I personally reviewed and interpreted this imaging study as foll ows: Radiologist's Impression: UNENHANCED CT OF THE BRAIN; CT ANGIOGRAM OF THE BRAIN; CT ANGIOGRAM OF THE NECK CLINICAL HISTORY: Strokelike symptoms. COMPARISON STUDY: CT of the brain dated 09/23/2012. MRI of the brain dated 01/03/2016. MR angiogram of the brain dated 09/24/2012. TECHNIQUE: Unenhanced axial CT scan of the brain is performed. Subsequently, following the IV administration of 115 of Optiray 320, CT angiogram of the head and neck was performed from the aortic arch to the vertex. Images are reviewed in the axial, sagittal, and coronal planes. 3-D MIPS images are created and assessed. IV contrast was administered without complication. All measurements were calculated based on NASCET criteria. A dose lowering technique was utilize d adhering to the principles of ALARA. CT DOSE: 1002.17 mGy.cm FINDINGS: Brain parenchyma: Small chronic infarcts involving the right parietal lobe in the right basal ganglia are unchanged from prior studies. There is no hemorrhage, mass effect, or evidence of acute territorial ischemia by CT cri teria. There is no evidence of enhancing mass lesion on the angiogram phase images. The ventricles, sulci, and cisterns are normal in configuration. [place]- white matter differentiation is preserved. No extra-axial fluid collection is seen. Thoracic aorta: Visualized portions of the thoracic aorta are normal in caliber. The aortic arch demonstrates standard 3-vessel anatomy. Right carotid arterial system: The right common carotid artery is widely patent, as are the right internal and external carotid arteries. Left carotid arterial system: The left common carotid artery is widely patent, as are the left internal and external carotid arteries. Vertebral arteries: The vertebral arteries are patent bilaterally and codominant. There is a fenestration versus focal dissection identified within the mid left vertebral artery at the C4-C5 level, best seen on axial image #131. This extends approximately 1 cm in length. Subclavian arteries: Patent bilaterally. Intracranial vasculature: There is origin of the left posterior cerebral artery. A posterior communicating artery is seen on the right. The internal carotid arteries are patent at the skull base, as are the anterior and middle cerebral arteries bilaterally. The vertebrobasilar system and posterior cerebral arteries are widely patent. The left vertebral artery is dominant. There is no aneurysm, high-grade stenosis, or focal vessel cut off seen throughout the intracranial circulation. Jugular veins: Widely patent bilaterally. Dural sinuses: Patent. Lung apices: Midline sternotomy wires are noted. Partially visualized upper lobe lung parenchyma appears clear. Soft tissues: The visualized pharyngeal soft tissues are normal in appearance noting angiographic phase technique. The oropharyngeal airway appears widely pat ent. The salivary and thyroid glands are normal in appearance. No cervical lymphadenopathy is seen. Skeletal structures: The calvarium appears intact. The cervical spine is within normal limits. Sinuses and mastoids: Moderate mucosal thickening is seen within the anterior ethmoid sinuses. Mild mucosal thickening is seen within the maxillary antra. The remaining paranasal sinuses are clear. The mastoid air cells are well pneumatized. IMPRESSION: 1. Chronic infarcts as above with no hemorrhage, mass effect, or evidence of acute territorial ischemia by CT criteria. 2. Unremarkable CT angiogram of the brain. 3. There is a fenestration versus focal dissection identified within the mid left vertebral artery at the C4-C5 level. If there are any prior outside imaging studies of the neck this should be useful for comparison purposes. 4. Otherwise unremarkable CT angiogram of the neck. Electronically signed by: Van Womack M.D. 12/02/2018 8:21 PM SINGLE VIEW CHEST CLINICAL HISTORY: Strokelike symptoms. FINDINGS: An AP, portable, upright chest radiograph is compared to study dated 05/15/2018 and correlated with chest CT dated 12/28/2013. The patient is status post midline sternotomy. The cardiomediastinal silhouette is unremarkable. The lungs and pleural spaces are clear. No pneumothorax is seen. The bony thorax is grossly intact. IMPRESSION: No active disease in the chest. Electronically signed by: Van Womack M.D. 12/02/2018 7:14 PM ECG Data Attestation: I personally reviewed and interpreted this ECG as follows: Indication: other (TIA/Unresponsive episode) Rate (beats per minute): 80 Rhythm: sinus rhythm Findings: + other ([place], LAD) and + nonspecific-ST abn; no acute ischemic change Comparison ECG Date: from (05/15/2018) Change: no significant change MDM Narrative The patient is a pleasant 43 yo woman with a pmhx of remote cardiomyopathy in the setting of with associated LVAD since removed after patient heart function recovered, h/o CVA in the setting of patiient�s LVAD without residual deficits who presents to the emergency department with transient 10 second episode of aphasia per HPI. On arrival the patient is anxious appearing in NAD, AFVSS. Patient appears clinically dry. Patient reports intermittent paraesthesias of her lips but has no objective neuro deficits on exam. Thus, no indication for stroke alert activation. EOMI. No nystagmus. Left pupil 4mm and right pupil 3mm (baseline per patient) and both reactive. 5/5 strength and SILT x 4 extremities. Cerebellar function intact including svaely-ge-wqke, alternating palms, [id number]. EKG with nonspecific TW abnormalities and ot herwise similar to prior. CXR negative. WBC 10.9, nonspecific. H/H and platelets wnl. Chemistry without acidosis. BUN/Cr > 20 c/w patient�s clinically dry appearance. Troponin negative. UA negative for infection. CT negative for acute infarct. Chronic infarcts of right parietal lob appreciated. Question of fenestration vs dissection of left vert. a. however unlikely to be acute given patient denies vertigo/ataxia. Given patient�s sx in the setting of prior h/o CVA, reasonable to admit for further stroke r/o. Case d/w Dr. Arroyo, [facility] hospitalist, who will evaluate the patient for admission. Impression & Plan Stroke-like symptoms, Aphasia Discharge Plan Visit Data *Final* Discharge Date/Time: 12/02/18 23:18 Chief Complaint: Stroke/CVA Symptoms Stated Complaint: UNABLE TO MOVE FOR 10SECS, HEADACHE, TONGUE/RT ARM ED Provider: Rich Piña Discharge Problem: Stroke-like symptoms, Aphasia Patient Disposition: Admitted As Inpatient Discharge Instructions Interventions: ED Discharge Assessment Last Done: 12/02/18 23:18 The scribe's documentation has been prepared under my direction and personally reviewed by me in its entirety. I confirm that the note above accurately reflects all work, treatment, procedures, and medical decision making performed by me.
--- NOTE | 2018-12-03 07:02 | Magnetic Resonance Report ---
MRI OF THE BRAIN WITHOUT CONTRAST CLINICAL HISTORY: Transient ischemic attack. COMPARISON STUDY: MRI of the brain January 03, 2016. Head CT and CTA of the head December 02, 2013. TECHNIQUE: Utilizing a 1.5 Carolynn magnet and dedicated coil, multiplanar, multiecho imaging of the bra in was performed without IV contrast. FINDINGS: There are no foci of restricted diffusion. No acute intracranial hemorrhage, midline shift or mass effect is present. Ventricular system is stable. Basilar cisterns are patent. There are no ex tra-axial collections. Flow-voids for the major intracranial vessels are present. There are old lacun ar infarct within the bilateral cerebellar hemispheres. Old infarcts within the right basal ganglia a nd right parietal lobe are again noted. The appearance of the brain is unchanged. No intracranial mas ses identified on this unenhanced exam. There is mild ethmoid sinus mucosal thickening. There is also mild mucosal thickening of the maxillary sinuses. Orbits are unremarkable. There is no fluid within mastoid air cells. Slightly diminished marrow signal within visualized skeletal structures is unchang ed as MRI January 03, 2016. IMPRESSION: 1. No acute intracranial findings. 2. Old infarcts within the right basal ganglia, right parietal lobe and bilateral cerebellar hemisphe res. Electronically signed by: Iftikhar Marquez M.D. 12/03/2018 7:00 AM
--- NOTE | 2018-12-03 07:16 | Magnetic Resonance Report ---
Brain MRA HISTORY: Stroke symptoms. TECHNIQUE: 3-D [id number] MRA of the brain was performed without contrast. COMPARISON STUDY: Head CTA 12/02/2018. FINDINGS: Visualized intracranial internal carotid arteries, distal vertebral arteries, and basilar a rtery are widely patent. There is no significant stenosis, occlusion, or aneurysm seen within the nette ateral ACAs, MCAs, or cemetery warden. Old right-sided infarcts are again noted. IMPRESSION: No significant stenosis, occlusion, or aneurysm within the [place] of [place]. Electronically signed by: Bebeto Hogan M.D. 12/03/2018 7:14 AM
--- NOTE | 2018-12-03 08:56 | Neurology Consultation ---
Date of Consultation December 03, 2018 Assessment & Plan (1) Aphasia: The patient had a 10 second episode of speech arrest followed by 5-10 minutes of right-sided tingling, followed by 15 minutes of left-sided headache. Currently she is asymptomatic and has had no further episodes are problems since that initial event prior to admission. Clinically she has no focal neurologic findings, meningeal signs, or encephalopathy. The etiology of this event was likely vasospastic/migrainous in origin. This is not typical or consistent with a ischemic or embolic TIA and there is nothing to suggest a seizure. I believe this is like the episode she had in 2013 - migraine. Patient does have risk factors for stroke including hypertension which is quite controlled. She has a history of heart failure and cardiomyopathy which is improved and stable as well. She has been on aspirin and her MRI of the brain shows no changes. 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 After review of this film with Dr. Marquez we believe this is old and possibly congenital. Recommendations: 1. Continue 81 milligram aspirin tablet daily. There is no need for any other change in medication. 2. The migraine episode is so brief and so infrequent (most recent episode 2012) that there is no medicine to take for treatment or prophylaxis for these events. If they occur more frequently, I would consider verapamil for prevention. 3. We could obtain a repeat CT angiography at 3 months as an outpatient. 4. I can follow as an outpatient if desired. Overall I spent a total of 105 minutes with this case, greater than 50 percent (65 minutes) was spent [id number] with the patient for evaluation and discussion. Included in the 100 minutes total was records review, review of CT and MRI films with Radiology, direct evaluation the patient at bedside and discussion of the case with the patient, staff, and Dr. Gooden, including differential diagnosis and treatment options. History of Present Illness Reason for Consultation: Patient is a 43-year-old, was asked to see the request of Dr. Arroyo, neurologic consultation regarding episode of speech arrest Requesting Physician: Dr. Arroyo Attending Physician: Tristan Gooden MD History of Present Illness In fall 2004, the patient was 04/19/2038 weeks and started having chest pain and shortness of breath. She was discovered to heart failure severe cardiomyopathy requiring a left ventricular assistive device. She was presumed to need a heart transplant. After several months on the assistive device it formed clot in in October of 2005 she embolic strokes. She had strokes in the right basal ganglia, right parietal head region, left temporal head region to a lesser degree and tiny strokes in the cerebellar hemispheres bilaterally. She did well ended up being on aspirin alone. She recovered heart function enough that she never did need heart transplant. Patient has a history of migraine headaches about once a year triggered by str ess. She has a history of hypertension on lisinopril and depression on escitalopram. In 2012 she had an episode of slurred speech and right arm and leg tingling lasting about 2 minutes. She was perfectly awake and alert during this. After 2 minutes those symptoms resolved and she had a left-sided headache. She was in the hospital at that time an MRI of the brain showed no change from previous and MR angiography of the head was unremarkable. Carotid ultrasound was normal as well. She was followed by Dr. Walton a remained on aspirin. Patient last saw Dr. Walton in December of 2015. An MRI of the brain at that time showed no change compared the previous MRI of 2012. Again, she did well with no symptoms. Over the last 48 hours she has had upper respiratory tract infection in this had fever, fatigue, cough, and congestion. This was mild enough that she was still able to go to work the last 2 days. Yesterday she went to work as usual and came home at the end of the afternoon feeling her usual self. 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 She knew what she wanted to say but could not form words or make a noise. She was quite aware and remember things. She was not moving very well but was not stiff or shaking either. Apparently she looked like she was �in a daze�. She did not notice any new vision problems. The speech arrest lasted 10 seconds and then resolved. She then had 5-10 minutes of right arm tingling (not face or leg). She had no weakness speech or mentation issues at that time. After 10 minutes, all tingling resolved and she was left with a left frontal pressure-type headache for 15 more minutes. She also had diarrhea. She claims that she had some stress at work that day. She has had no other symptoms since. She arrived to the emergency room December 02 at 1756 with a temperature 36.7, pulse 88 and regular, blood pressure 133/86, and O2 saturation 98 percent. She was described as having normal sensorium and a normal examination. Chest x-ray was unremarkable CT scan of the head was unremarkable CT angiography of the head in MR angiography of the head was quite normal with no vessel anomalies or stenoses. CT angiography of the neck was normal except for a 1 centimeter area of left vertebral fenestration versus focal dissection at C4-5. The I reviewed this film with Dr. Jimmy pierre Radiology, and we believe this is old and nonspecific. It may even be congenital. CBC showed a mildly elevated white count with normal hemoglobin and hematocrit. Chem profile was unremarkable and urinalysis was normal. MRI of the brain was obtained and showed the old infarcts as before completely unchanged from 2016. Therefore, there were no new lesions. The patient feels well and blood pressure is 103/68. Allergies Allergy/AdvReac Type Severity Reaction Status Date / Time cinnamon Allergy Severe Blister Verified 12/02/18 20:29 povidone-iodine Allergy Unknown ITCHING, Verified 12/02/18 20:28 RASH pseudoephedrine Allergy Unknown Unknown Verified 12/02/18 20:28 Home Medications Home Medications Medication Instructions Recorded Confirmed Type albuterol sulfate [ProAir HFA] 2 puff INHALATION Q4 PRN 12/02/18 12/02/18 History amoxicillin-pot clavulanate 1 tab PO BID 12/02/18 12/02/18 History [Augmentin] ascorbic acid (vitamin C) [Vitamin 500 mg PO DAILY 12/02/18 12/02/18 History C] aspirin [Aspir-Low] 81 mg PO DAILY 12/02/18 12/02/18 History benzonatate [Tessalon Perles] 100 mg PO TID PRN 12/02/18 12/02/18 History carvedilol [Coreg] 12.5 mg PO BID 12/02/18 12/02/18 History cholecalciferol (vitamin D3) 2,000 unit PO DAILY 12/02/18 12/02/18 History [Vitamin D3] escitalopram oxalate 20 mg PO DAILY 12/02/18 12/02/18 History fluticasone [Flonase Allergy 2 spray INTRANASAL DAILY PRN 12/02/18 12/02/18 History Relief] lisinopril 2.5 mg PO DAILY 12/02/18 12/02/18 History lorazepam 0.5 mg PO DAILY PRN 12/02/18 12/02/18 History magnesium oxide 400 mg PO Q OTHER DAY 12/02/18 12/02/18 History multivitamin 1 tab PO DAILY 12/02/18 12/02/18 History Patient History Medical History Stroke TIA (transient ischemic attack) Surgical History History of bladder surgery History of left ventricular assist device (LVAD) Family History Mother Hypertension Migraine Father Hypertension Dyslipidemia Social History Preferred Language: Slovak Communication Ability: Effective Family Practice Md Required: No Beliefs That Will Affect Care: None Current Living Situation: Spouse current occupational status: employed 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 [employer] Other Information That Helps Us Care for You: No Feels Safe at Home: Yes Safety Concerns: Feels Safe At This Time Smoking Status: Never smoker Hx Alcohol Use: Yes Hx Substance Use: No Review of Systems Constitutional: no fever and no fatigue Eyes: no diplopia, no eye pain and no worsening vision Ear, Nose, Mouth, Throat: no ear pain, no tinnitus, no hearing loss and no dysphagia Respiratory: no cough and no dyspnea Cardiovascular: no chest pain, no dyspnea and no palpitations Gastrointestinal: no abdominal pain, no nausea and no vomiting Genitourinary (Female): no dysuria, no urinary frequency and no urinary incontinence Musculoskeletal: no back pain, no neck pain, no radicular pain, no myalgia, no muscle weakness and no muscle atrophy Integumentary: no rash and no lesions Neurologic: no gait abnormality, no falls, no localized weakness, no generalized weakness, no tingling, no numbness, no tremor(s), no abnormal movements, no dizziness, no headache(s), no abnormal speech, no behavioral changes, no confusion and no memory loss Psychiatric: no depression, no abnormal sleep pattern, no anxiety, no difficulty concentrating, no confusion and no hallucinations Endocrine: no fatigue and no flushing Hematologic / Lymphatic: no easy bleeding and no easy bruising Allergy / Immunological: no urticaria Physical Exam Vital Signs (Past 24 Hours): Last Vital Signs Temp 36.8 C 12/03/18 08:01 Pulse 80 12/03/18 08:01 Resp 20 12/03/18 08:01 BP 103/68 12/03/18 08:01 Pulse Ox 96 12/03/18 08:01 Physical Exam: The patient is right-handed. The patient is awake, alert, and attentive. Speech is normal without any aphasia or dysarthria. Mentation and thought processes are intact, with full orientation and normal fund of knowledge. Attention and concentration are normal. Mood and affect are normal and appropriate. General appearance and grooming are normal. Short and long-term memory are intact. The discs are sharp (deeply cupped but otherwise normal) with positive venous pulsations bilaterally. There are no exudates, hemorrhages, or blood vessel changes seen. Pupils are 4 mm bilaterally and reactive to light. Extraocular eye muscles are intact without nystagmus. Visual acuity and visual franklin seem normal grossly to confrontation. There are no deficits to sensation in the face in all 3 distributions of the fifth cranial nerve bilaterally. Corneal reflexes are positive bilaterally. Facial strength and symmetry was normal bilaterally. Hearing seems intact grossly to voice and finger rub bilaterally. Palate moves well without asymmetry. There is normal sternocleidomastoid and trapezius (shoulder shrug) strength bilaterally. Tongue is midline with good strength bilaterally. Neck has a full range of motion without discomfort. There are no cervical bruits bilaterally. There are no cranial or ocular bruits. Heart is without murmur. There is a regular rhythm and rate. Cervical, thoracic, and lumbar spine are nontender to palpation. Gait is narrow based, with good arm swing, turns, and stance. Balance is normal eyes open or closed. With outstretched arms there is no drift. There are no resting, postural, or action tremors. There is no ataxia with finger to nose testing. There is good facility in the hands. No other abnormal involuntary movements are noted. Motor strength is 5/5 diffusely in the arms bilaterally including deltoids, biceps, triceps, brachioradialis, wrist flexors and extensors, air boatswain, and intrinsic hand muscles. Motor strength is 5/5 diffusely in the legs bilaterally including hip flexors, quadriceps, hamstrings, gastrocnemius, tibialis anterior, tibialis posterior, and Peroneii muscles bilaterally. Toe extensors are normal and there is good bulk in the extensor digitorum brevis muscles bilaterally. The limbs have good tone without rigidity or spasticity. There is no atrophy noted in the muscles. Muscle bulk is normal, there is no tenderness to pal pation, no myotonia to percussion, and no fasciculations seen. Sensory examination is intact to touch and pin throughout all 4 limbs diffusely. Reflexes are 2/4 in the biceps, triceps, brachioradialis, quadriceps, and Achilles tendons bilaterally. Toes are downgoing with plantar stimulation bilaterally. Peripheral pulses are present and of normal quality distally in all 4 limbs. There is no peripheral edema noted in the limbs. Results & Data Diagnostic Findings [place] [phone] Magnetic Resonance Report Patient: CROW MG Date: 12/02/18 MR#: [id number]: [address] Acct ID:[id number]: Date: 1975[facility] Zip: [place] [id number] Age: 43Location: 2N Sex: F Room/Bed: [facility] Att Phy: Tristan Gooden, MDDiagnosis: TRANSIENT APHASIA Yajaira Phy: Ellen Washburn Service Date: 12/03/18 Fam Phy: Ellen Washburn Interpreting Phy: Iftikhar Marquez MD Admit Phy: Luis Alberto Arroyo M.D. Ordering Phy: Luis Alberto Arroyo M.D. cc: ~ MRI OF THE BRAIN WITHOUT CONTRAST CLINICAL HISTORY: Transient ischemic attack. COMPARISON STUDY: MRI of the brain January 03, 2016. Head CT and CTA of the head December 02, 2013. TECHNIQUE: Utilizing a 1.5 Carolynn magnet and dedicated coil, multiplanar, multiecho imaging of the brain was performed without IV contrast. FINDINGS: There are no foci of restricted diffusion. No acute intracranial hemorrhage, midline shift or mass effect is present. Ventricular system is stable. Basilar cisterns are patent. There are no extra-axial collections. Flow- voids for the major intracranial vessels are present. There are old lacunar infarct within the bilateral cerebellar hemispheres. Old infarcts within the right basal ganglia and right parietal lobe are again noted. The appearance of the brain is unchanged. No intracranial masses identified on this unenhanced exam. There is mild ethmoid sinus mucosal thickening. There is also mild mucosal thickening of the maxillary sinuses. Orbits are unremarkable. There is no fluid within mastoid air cells. Slightly diminished marrow signal within visualized skeletal structures is unchanged as MRI January 03, 2016. IMPRESSION: 1. No acute intracranial findings. 2. Old infarcts within the right basal ganglia, right parietal lobe and bilateral cerebellar hemispheres. Electronically signed by: Iftikhar Marquez M.D. 12/03/2018 7:00 AM
--- NOTE | 2018-12-03 10:11 | Hospitalist Progress Note ---
Date of Service December 03, 2018 Assessment & Plan (1) Aphasia: associated with Headache- likely secondary to Migraine patient had a 10 second episode of speech arrest followed by 5-10 minutes of right-sided tingling, followed by 15 minutes of left-sided headache. symptoms resolved, no recurrence during admission Brain MRI: no acute CVA 1. No acute intracranial findings. 2. Old infarcts within the right basal ganglia, right parietal lobe and bilateral cerebellar hemispheres. Head MRA: No significant stenosis, occlusion, or aneurysm within the [place] of [place]. 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 If there are any prior outside imaging studies of the neck this should be useful for comparison purposes. Otherwise unremarkable CT angiogram of the neck. evaluated by Neurologist Dr. Hardy "The etiology of this event was likely vasospastic/migrainous in origin. This is not typical or consistent with a ischemic or embolic TIA and there is nothing to suggest a seizure. I believe this is like the episode she had in 2013 - migraine. 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 After review of this film with Dr. Marquez we believe this is old and possibly congenital. 1. Continue 81 milligram aspirin tablet daily. There is no need for any other change in medication. 2. The migraine episode is so brief and so infrequent (most recent episode 2012) that there is no medicine to take for treatment or prophylaxis for these events. If they occur more frequently, I would consider verapamil for prevention. 3. We could obtain a repeat CT angiography at 3 months as an outpatient." follow up with Dr. Hardy in 4 weeks chronic systolic heart failure (EF 45-50%), patient euvolemic hx cardiogenic shock sp LVAD (07/2005) status post removal (11/2005) stable hypertension/PVCs on Coreg stable Recent sinusitis infection, improved on ongoing Augmentin Rx Diarrhea- resolved Disposition d/c home today Follow-up with primary care physician in 1 week Follow-up with neurologist in 4 weeks Case and plan of care discussed with patient and her family at the bedside They are comfortable and agreeable with plan of care All questions answered Subjective Follow-up for episode of headache associated with aphasia and right arm paresthesias Seen sitting up in bed, comfortable States she feels much better overall Neurologic symptoms have resolved, no recurrence Denies headache, dizziness, chest pain, shortness of breath, no other symptoms Physical Exam Vital Signs (Past 24 Hours): Last Vital Signs Temp 36.8 C 12/03/18 08:01 Pulse 80 12/03/18 08:01 Resp 20 12/03/18 08:01 BP 103/68 12/03/18 08:01 Pulse Ox 96 12/03/18 08:01 Physical Exam: General- oriented x 3, not in distress, speaks in sentences with no effort or accessory muscle use Eyes- anicteric Neck- no JVD Lungs- clear breath sounds bilaterally, no rales/wheezes Heart- normal rate, regular rhythm; no murmurs Abdomen- normal bowel sounds, nondistended, soft, nontender Extremities- no pretibial edema, no calf tenderness Neuro- alert, oriented x 3; no gross focal neurologic deficits Skin- warm & dry Results & Data Laboratory Results Laboratory Results - last 24 hr 12/02/18 12/02/18 12/02/18 18:15 18:58 19:00 WBC 10.96 H RBC 5.11 Hgb 15.0 POC Hgb Hct 43.8 POC Hct MCV 85.7 MCH 29.4 MCHC 34.2 RDW Std Deviation 41.5 RDW Coeff of Marcell 13.2 Plt Count 255 MPV 10.6 H Immature Gran % (Auto) 0.3 Neut % (Auto) 57.2 Lymph % (Auto) 34.0 [place] % (Auto) 6.3 Eos % (Auto) 1.9 Baso % (Auto) 0.3 Immature Gran # (Auto) 0.03 H Neut # (Auto) 6.27 Lymph # (Auto) 3.73 H [place] # (Auto) 0.69 H Eos # (Auto) 0.21 Baso # (Auto) 0.03 PT INR APTT PTT Ratio POC Sodium Sodium POC Potassium Potassium POC Chloride Chloride Carbon Dioxide POC Total CO2 Anion Gap POC Anion Gap POC BUN BUN Creatinine POC Creatinine Est Cr Clr Drug Dosing Est GFR ( Amer) Est GFR (Non-Af Amer) BUN/Creatinine Ratio Glucose POC Glucose 83 POC Glucose (other) Calcium POC Ioniz Calcium Andre Phosphorus Magnesium Total Bilirubin AST ALT Alkaline Phosphatase Troponin I Total Protein Albumin Globulin Albumin/Globulin Ratio Triglycerides Cholesterol LDL Cholesterol, Calc VLDL Cholesterol, Calc HDL Cholesterol Cholesterol/HDL Ratio TSH HCG, Qual Urine Color Yellow Urine Appearance Clear Urine pH 5.0 Ur Specific [place] 1.010 Urine Protein Negative Urine Glucose (UA) Negative Urine Ketones Negative Urine Blood Trace H Urine Nitrite Negative Urine Bilirubin Negative Urine Urobilinogen Negative Ur Leukocyte Esterase 1+ H Urine WBC (Auto) 1-5 Urine RBC (Auto) 0-4 U Hyaline Cast (Auto) 1-5 U Epithel Cells (Auto) 5-10 H Urine Bacteria (Auto) Negative 12/02/18 12/02/18 12/02/18 19:00 19:00 19:00 WBC RBC Hgb POC Hgb Hct POC Hct MCV MCH MCHC RDW Std Deviation RDW Coeff of Marcell Plt Count MPV Immature Gran % (Auto) Neut % (Auto) Lymph % (Auto) [place] % (Auto) Eos % (Auto) Baso % (Auto) Immature Gran # (Auto) Neut # (Auto) Lymph # (Auto) [place] # (Auto) Eos # (Auto) Baso # (Auto) PT 9.9 INR 1.0 APTT 26.3 PTT Ratio 1.0 POC Sodium Sodium 140 POC Potassium Potassium 3.8 POC Chloride Chloride 108 H Carbon Dioxide 26 POC Total CO2 Anion Gap 6.0 POC Anion Gap POC BUN BUN 24 H Creatinine 0.93 POC Creatinine Est Cr Clr Drug Dosing 79.3 Est GFR ( Amer) 87.2 Est GFR (Non-Af Amer) 75.3 BUN/Creatinine Ratio 25.7 H Glucose 84 POC Glucose POC Glucose (other) Calcium 9.6 POC Ioniz Calcium Andre Phosphorus 3.0 Cancelled Magnesium 2.0 Total Bilirubin 0.3 AST 15 ALT 23 Alkaline Phosphatase 106 Troponin I < 0.015 Total Protein 8.3 H Albumin 4.1 Globulin 4.2 H Albumin/Globulin Ratio 1.0 Triglycerides Cholesterol LDL Cholesterol, Calc VLDL Cholesterol, Calc HDL Cholesterol Cholesterol/HDL Ratio TSH 1.820 Cancelled HCG, Qual Urine Color Urine Appearance Urine pH Ur Specific [place] Urine Protein Urine Glucose (UA) Urine Ketones Urine Blood Urine Nitrite Urine Bilirubin Urine Urobilinogen Ur Leukocyte Esterase Urine WBC (Auto) Urine RBC (Auto) U Hyaline Cast (Auto) U Epithel Cells (Auto) Urine Bacteria (Auto) 12/02/18 12/02/18 12/03/18 19:00 19:07 08:27 WBC 6.67 RBC 4.97 Hgb 14.5 POC Hgb 15.3 Hct 42.2 POC Hct 45 MCV 84.9 MCH 29.2 MCHC 34.4 RDW Std Deviation 40.6 RDW Coeff of Marcell 13.3 Plt Count 228 MPV 10.4 Immature Gran % (Auto) 0.1 Neut % (Auto) 62.8 Lymph % (Auto) 27.7 [place] % (Auto) 6.6 Eos % (Auto) 2.2 Baso % (Auto) 0.6 Immature Gran # (Auto) 0.01 Neut # (Auto) 4.18 Lymph # (Auto) 1.85 [place] # (Auto) 0.44 Eos # (Auto) 0.15 Baso # (Auto) 0.04 PT INR APTT PTT Ratio POC Sodium 141 Sodium POC Potassium 3.9 Potassium POC Chloride 106 Chloride Carbon Dioxide POC Total CO2 24 Anion Gap POC Anion Gap 17.0 POC BUN 23 H BUN Creatinine POC Creatinine 0.9 Est Cr Clr Drug Dosing Est GFR ( Amer) Est GFR (Non-Af Amer) BUN/Creatinine Ratio Glucose POC Glucose POC Glucose (other) 86 Calcium POC Ioniz Calcium Andre 1.23 Phosphorus Magnesium Total Bilirubin AST ALT Alkaline Phosphatase Troponin I Total Protein Albumin Globulin Albumin/Globulin Ratio Triglycerides Cholesterol LDL Cholesterol, Calc VLDL Cholesterol, Calc HDL Cholesterol Cholesterol/HDL Ratio TSH HCG, Qual Negative Urine Color Urine Appearance Urine pH Ur Specific [place] Urine Protein Urine Glucose (UA) Urine Ketones Urine Blood Urine Nitrite Urine Bilirubin Urine Urobilinogen Ur Leukocyte Esterase Urine WBC (Auto) Urine RBC (Auto) U Hyaline Cast (Auto) U Epithel Cells (Auto) Urine Bacteria (Auto) 12/03/18 08:27 WBC RBC Hgb POC Hgb Hct POC Hct MCV MCH MCHC RDW Std Deviation RDW Coeff of Marcell Plt Count MPV Immature Gran % (Auto) Neut % (Auto) Lymph % (Auto) [place] % (Auto) Eos % (Auto) Baso % (Auto) Immature Gran # (Auto) Neut # (Auto) Lymph # (Auto) [place] # (Auto) Eos # (Auto) Baso # (Auto) PT INR APTT PTT Ratio POC Sodium Sodium 140 POC Potassium Potassium 3.8 POC Chloride Chloride 109 H Carbon Dioxide 24 POC Total CO2 Anion Gap 7.0 POC Anion Gap POC BUN BUN 13 Creatinine 0.75 POC Creatinine Est Cr Clr Drug Dosing 97.4 Est GFR ( Amer) 113.1 Est GFR (Non-Af Amer) 97.6 BUN/Creatinine Ratio 16.7 Glucose 91 POC Glucose POC Glucose (other) Calcium 9.0 POC Ioniz Calcium Andre Phosphorus Magnesium Total Bilirubin AST ALT Alkaline Phosphatase Troponin I Total Protein Albumin Globulin Albumin/Globulin Ratio Triglycerides 69 Cholesterol 204 H LDL Cholesterol, Calc 145 VLDL Cholesterol, Calc 14 HDL Cholesterol 45 Cholesterol/HDL Ratio 5 TSH HCG, Qual Urine Color Urine Appearance Urine pH Ur Specific [place] Urine Protein Urine Glucose (UA) Urine Ketones Urine Blood Urine Nitrite Urine Bilirubin Urine Urobilinogen Ur Leukocyte Esterase Urine WBC (Auto) Urine RBC (Auto) U Hyaline Cast (Auto) U Epithel Cells (Auto) Urine Bacteria (Auto)
--- NOTE | 2018-12-03 11:09 | Discharge Summary ---
Date of Service December 03, 2018 Admission HPI Per Admitting Provider History obtained from patient, family, and records. Medical history significant for chronic systolic heart failure (EF 45-50%), cardiogenic shock secondary to peripartum cardiomyopathy status post LVAD (07/2005) status post removal (11/2005), hx of cardioembolic stroke status post Coumadin (10/2005), hypertension/PVCs on Coreg, anxiety/PTSD/mood disorder. Recent confinement September 2012 for transient aphasia, right sided facial numbness, RUE/RLE tingling sensation symptoms attributed to TIA symptoms. As per patient, she was on Plavix for a short time outpatient for stroke prophylaxis. Plavix later switched back to aspirin after bruising noted as per patient. Patient seen at PCPs office yesterday for sinusitis symptoms. Augmentin Rx initiated. Loose stools noted without abdominal pain. A few hours ago, patient was folding clothes with her when she had trouble getting words out along with left-sided achy headache symptoms different from usual migraine attack. No aura as per patient. Episode lasted about 10 seconds. Patient compliant with home aspirin Rx. Some stress at work. Admission Exam Per Admitting Provider GENERAL: Awake, alert, anxious-appearing, in no distress HENT: Normocephalic, atraumatic. Oropharynx with dry mucous membranes and otherwise unremarkable. EYES: Normal conjunctiva. Sclera non-icteric. EOMI. No nystamgus. Left pupil 4mm and right pupil 3mm (baseline per patient) and both reactive. NECK: Supple. No nuchal rigidity. FROM. No JVD. RESPIRATORY: Clear to auscultation. CARDIAC: Regular rate, normal rhythm. Extremities warm and well perfused. Pulses equal. ABDOMEN: Soft, non-distended. No tenderness to palpation. No rebound or guarding. No masses. RECTAL: Deferred. MUSCULOSKELETAL: Chest examination reveals no tenderness. The back is symmetrical on inspection without obvious abnormality. There is no CVA tenderness to palpation. No joint edema. LOWER EXTREMITIES: Calves are equal size bilaterally and non-tender. No edema. No discoloration. NEURO: Cranial nerves 2-12 grossly intact. Normal sensorium. No sensory or motor deficits noted. Speech normal. No pronator drift. Pmskna-[id number] intact. Xrmw-vj-[id number] intact. SKIN: No rash or jaundice noted. Principal Diagnosis Migraine headache Discharge Exam Vital Signs (Past 24 Hours): Last Vital Signs Temp 36.8 C 12/03/18 08:01 Pulse 80 12/03/18 08:01 Resp 20 12/03/18 08:01 BP 103/68 12/03/18 08:01 Pulse Ox 96 12/03/18 08:01 Physical Exam: General- oriented x 3, not in distress, speaks in sentences with no effort or accessory muscle use Eyes- anicteric Neck- no JVD Lungs- clear breath sounds bilaterally, no rales/wheezes Heart- normal rate, regular rhythm; no murmurs Abdomen- normal bowel sounds, nondistended, soft, nontender Extremities- no pretibial edema, no calf tenderness Neuro- alert, oriented x 3; no gross focal neurologic deficits Skin- warm & dry Discharge Data Allergies Allergy/AdvReac Type Severity Reaction Status Date / Time cinnamon Allergy Severe Blister Verified 12/02/18 20:29 povidone-iodine Allergy Unknown ITCHING, Verified 12/02/18 20:28 RASH pseudoephedrine Allergy Unknown Unknown Verified 12/02/18 20:28 Consultations 12/02/18 20:38 ED Decision to Admit Stat 12/03/18 00:08 Consult Case Management - Discharge Planning Routine Consult Neurology Routine Ordered Studies 12/02/18 18:38 CT head/brain wo con Stat 12/02/18 18:39 CT angio head w con Stat CT angio neck with con Stat 12/03/18 00:08 MR angio head wo con Routine MR brain wo con Routine Hospital Course (1) Aphasia: associated with Headache- likely secondary to Migraine patient had a 10 second episode of speech arrest followed by 5-10 minutes of right-sided tingling, followed by 15 minutes of left-sided headache. symptoms resolved, no recurrence during admission Brain MRI: no acute CVA 1. No acute intracranial findings. 2. Old infarcts within the right basal ganglia, right parietal lobe and bilateral cerebellar hemispheres. Head MRA: No significant stenosis, occlusion, or aneurysm within the [place] of [place]. 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 If there are any prior outside imaging studies of the neck this should be useful for comparison purposes. Otherwise unremarkable CT angiogram of the neck. evaluated by Neurologist Dr. Payne "The etiology of this event was likely vasospastic/migrainous in origin. This is not typical or consistent with a ischemic or embolic TIA and there is nothing to suggest a seizure. I believe this is like the episode she had in 2013 - migraine. 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 After review of this film with Dr. Marquez we believe this is old and possibly congenital. 1. Continue 81 milligram aspirin tablet daily. There is no need for any other change in medication. 2. The migraine episode is so brief and so infrequent (most recent episode 2012) that there is no medicine to take for treatment or prophylaxis for these events. If they occur more frequently, I would consider verapamil for prevention. 3. We could obtain a repeat CT angiography at 3 months as an outpatient." follow up with Dr. Payne in 4 weeks Chronic systolic heart failure (EF 45-50%), patient euvolemic History of cardiogenic shock sp LVAD (07/2005) status post removal (11/2005) stable Hypertension/PVCs on Coreg stable Recent sinusitis infection, improved on ongoing Augmentin Rx Diarrhea- resolved Disposition d/c home today Follow-up with primary care physician in 1 week Follow-up with neurologist in 4 weeks Case and plan of care discussed with patient and her family at the bedside They are comfortable and agreeable with plan of care All questions answered Total Time Total Time Spent Total Time Spent (In Minutes): 30 minutes Discharge Plan Discharge Items Patient Disposition: Home - Self-Care Reason For Visit: TRANSIENT APHASIA Discharge Diagnosis: MIGRAINE HEADACHE Condition: Good Discharge Goals: Diagnostic testing Activity: As commented below Activity Comment: RESUME ACTIVITY GRADUALLY TOLERATED Lifting: Wait until after follow-up appointment Exercise/Sports: Wait until after follow-up appointment Driving/Machine Use Comment: NO DRIVING UNTIL RE-EVALUATED BY PRIMARY CARE PHYSICIAN Non-emergency contact: Primary Care Provider and Neurologist Call non-emergency contact if: you have any medication questions, your pain is not controlled and you have a fever Follow-up/Referrals: Rohit Payne III, MD [Physician] - (IN 4 WEEKS) Ellen Washburn [Primary Care Provider] - 12/08/18 10:45 am Diet: Heart Healthy Addtl Provider Instructions: PLEASE FOLLOW UP WITH DR. PAYNE IN 4 WEEKS. PLEASE CALL HIS OFFICE FOR AN APPOINTMENT. CALL PRIMARY CARE PHYSICIAN OR NEUROLOGIST, OR RETURN TO THE ER IMMEDIATELY IF WITH WORSENING OF HEADACHE. Who to Call and When: Medical Emergencies: Call 911 immediately if you experience any of the following warning signs and symptoms of Stroke: Sudden numbness or weakness of the face, arm or leg, especially on one side of the body Sudden confusion, trouble speaking or understanding Sudden trouble seeing in one or both eyes Sudden trouble walking, dizziness, loss of balance or coordination Sudden severe headache with no cause Do not delay calling 911 if you experience any warning signs or symptoms of a stroke. Delay in seeking medical attention may affect what treatments can be given to you. Risk Factors for Stroke: You can reduce your chances of stroke by working with your medical provider to adopt a healthy lifestyle. Some specific ways to lower your chance of stroke are: If you are a smoker, now is the time to stop smoking cigarettes If you are diabetic, improve the control of your blood sugars Avoid excessive amounts of alcohol Control high blood pressure Lose weight if you are overweight Be sure to lead an active lifestyle Eat a healthy diet low in salt, cholesterol and fat You should know about other risk factors for stroke that you are unable to control. These include: Age 55 years or older Male gender Certain racial groups: , or / Family History of Stroke, Mini stroke or Heart Attack Sickle Cell Disease It is important for you to keep your follow up appointments with your medical provider. Prescriptions: Continued multivitamin Tablet 1 tab PO DAILY RF: 0 aspirin [Aspir-Low] 81 mg Tablet,Delayed Release (Dr/Ec) 81 mg PO DAILY RF: 0 fluticasone [Flonase Allergy Relief] 50 mcg/actuation spray,suspension 2 spray Intranasal DAILY PRN (Reason: Nasal Congestion) RF: 0 lisinopril 2.5 mg tablet 2.5 mg PO DAILY RF: 0 amoxicillin-pot clavulanate [Augmentin] 875-125 mg tablet 1 tab PO BID RF: 0 escitalopram oxalate 20 mg tablet 20 mg PO DAILY RF: 0 carvedilol [Coreg] 12.5 mg Tablet 12.5 mg PO BID RF: 0 lorazepam 0.5 mg Tablet 0.5 mg PO DAILY PRN (Reason: Anxiety) RF: 0 ascorbic acid (vitamin C) [Vitamin C] 500 mg Tablet 500 mg PO DAILY RF: 0 benzonatate [Tessalon Perles] 100 mg capsule 100 mg PO TID PRN (Reason: Cough) RF: 0 albuterol sulfate [ProAir HFA] 90 mcg/actuation Hfa Aerosol Inhaler 2 puff INHALATION Q4 PRN (Reason: Shortness Of Breath Or Wheezing) RF: 0 cholecalciferol (vitamin D3) [Vitamin D3] 2,000 unit Capsule 2,000 unit PO DAILY RF: 0 magnesium oxide 400 mg magnesium Tablet 400 mg PO Q OTHER DAY RF: 0 Stand-Alone Forms: [facility] Discharge Orders: Discharge Order (Routine); Ordered 12/03/18 Ordered By: Tristan Gooden Admission Data Admit Date/Time: 12/02/18 22:08 Attending Provider: Tristan Gooden Admit Provider: Luis Alberto Arroyo Primary Care Provider: Ellen Washburn Other Providers: Luis Alberto Arroyo ; Rafa Walton ; Rohit Payne III ; Sandra Frank ; Angela Hansen ; Kendall Werner Service: Telemetry Medical Other Interventions: Discharge Summary Assessment (RN) Last Done: 12/03/18 11:01
== END 2018-12-03 11:35 | disposition home or self-care (01) ==
LOC: 2N 17:47 → ED 17:47 → 2N 23:18
DX: Z79.82 Long term (current) use of aspirin; I50.22 Chronic systolic (congestive) heart failure; Z79.01 Long term (current) use of anticoagulants; F43.10 Post-traumatic stress disorder, unspecified; R19.7 Diarrhea, unspecified; R51 Headache; Z86.73 Personal history of transient ischemic attack (TIA), and cerebral infarction without residual deficits; I11.0 Hypertensive heart disease with heart failure; R47.01 Aphasia